=== PATIENT | female | born 1995 | race Two or more races ===

== ENCOUNTER 2016-03-11 19:31 | Inpatient (IN) | payer MEDICAID ==
[2016-03-11 19:52] VITALS: BMI 26.0
[2016-03-11] MEDS ORDERED: LR 500 ML IV PRN (19:57)
[2016-03-11] MEDS ORDERED: LR 1,000 ML IV SCH (20:00)
[2016-03-11] MEDS ORDERED: LIDOCAINE 1% 30 ML VIAL (PRESERVATIVE FREE) ONE (20:09)
[2016-03-11] MEDS ORDERED: OXYTOCIN 1,000 ML IV ONE ×2 (20:09→21:16)
[2016-03-11 20:16] LABS: MPV 12.2 fL (7.4-10.4)
--- NOTE | 2016-03-11 20:49 | HISTPHYS ---
- HISTORY OF PRESENT ILLNESS Age: 20 Estimated Due Date: 03/15/16 Gestational Age: 39 : 2 Para: 1 Patient Presents to:: Labor & Delivery Presents for:: Contractions, Leaking Fluid Current : No Complications, GBS - - REVIEW OF SYSTEMS ROS Negative Except As Marked: Yes ROS Negative except as marked Reports/Denies: Reports: Contractions, Movement, Leaking Fluid Pain: Reports: Abdominal - ALLERGIES Allergies Allergy/AdvReac Type Severity Reaction Status Date / Time No Known Allergies Allergy Verified 03/11/16 19:46 - CURRENT MEDICATIONS Home Medication List No Home Medications 03/11/16 [History] - PAST MEDICAL HISTORY Reports: No Significant History - PAST SURGICAL HISTORY splenectomy - SOCIAL HISTORY Smoking Status: Never smoker Social History: Denies: Amphetamine Use, Alcohol Use, Barbiturate Use, Benzodiazipine Use - GENITOURINARY HISTORY Gynecologic History: Reports: None HX : 2 Para: 1 Live Deliveries (# of pregnancies resulting in a live ): 1 1 Infant Sex: Female Weight: 6-8 Weeks Gestation: 38 - PHYSICAL EXAM Vital Signs:: Temperature: 97.7 F (03/11/16 20:26) HR: 85 (03/11/16 20:26) RR: 20 (03/11/16 20:26) BP: 152/76 (03/11/16 20:26) Pulse Ox: () GENERAL: Alert, Oriented, Distress (with contractions) ABDOMEN: Gravid, Non-Tender GENITOURINARY: Normal Dilation (cm): 10 Effacement (%): 100 Station: +1 Heart Rate: 150 Contractions: Regular Membranes: SROM - ASSESSMENT (ACTIVE PROBLEMS) (1) Active labor at term Acute [id number] - - PLAN Admit, IV Hydration, Labs
--- NOTE | 2016-03-11 20:50 | OBDELNOTE ---
Delivery Note - Problem/Diagnosis (1) Active labor at term Status: Acute (2) Single live Status: Acute (3) Vaginal delivery Status: Acute - Admitting Diagnosis Reason for Visit: Contractions, Leaking Fluid Admission Date: 03/11/16 Admission time: 19:49 Gestational Age: 39 - Procedures Procedure(s): Ultrasound, Non-Stress Test Labor Anesthesia/Analgesia: None Date: 03/11/16 Time: 20:25 Spontaneous Vaginal Delivery Presentation: Vertex Episiotomy: None Laceration: Vaginal Repair Agent: 3-0 Vicryl EBL: 300 Fluid: Clear Placenta: Spontaneous Description: Normal Cord: 3 Vessels. Denies: Nuchal Cord, True Knot - Data Order: [place] Infant Sex: Female Weight: 3.109 kg (1min): 9 (5min): 9 Feeding Plans for Infant: Breast, Bottle Plans Circumcision: No [place] to:: LDRP/Mother's Room - /Operative Complications /Op Complications: None Discharge Planning - REASON FOR ADMISSION Patient Presents to:: Labor & Delivery Reason for Visit: Contractions, Leaking Fluid - DISCHARGE INSTRUCTIONS
--- NOTE | 2016-03-11 20:51 | PCM.DCS92 ---
- Primary/Secondary Discharge Diagnoses (1) Active labor at term Acute [id number] - (2) Single live Acute Z37.0 - SINGLE LIVE (3) Vaginal delivery Acute O80 - ENCOUNTER FOR FULL-TERM UNCOMPLICATED DELIVERY - HOSPITAL COURSE /Op Complications: None - DISCHARGE INSTRUCTIONS Discharge Disposition: Home Discharge Condition: Good Cognitive Discharge Status: Unimpaired Fuctional Discharge Status: Independent Patient Leaving with Prescriptions?: Yes Home Medications/ New Prescriptions: New Hydrocodone Bit/Acetaminophen [Terrell 5-325 Tablet] 1 - 2 tab PO Q4H PRN #30 tab PRN Reason: Pain Ibuprofen Tablet [Motrin] 800 mg PO TID #30 tab - Diet Diet at Discharge: Regular - Activity Activity: No Heavy Lifting, Pelvic Rest, No Driving Do not lift more than_pounds: 15 No Driving for: 2 weeks - Instructions Call Physician for: Sudden/Sever Chest Pain, Soaking Pad in 1 hr, Temperature Above 100.4 - Incision Incision, Lacerations, or Tears: Yes - DC Summary Notes Discharge Medications: *See "Discharge Medication List" for a complete list of Home Medications and Discharge Medications.* Obstetric Hospital Course - Admitting Diagnosis Reason for Visit: Contractions, Leaking Fluid Admission Date: 03/11/16 Admission time: 19:49 Gestational Age: 39 - Procedures Procedure(s): Ultrasound, Non-Stress Test Labor Anesthesia/Analgesia: None Date: 03/11/16 Time: 20:25 Spontaneous Vaginal Delivery Presentation: Vertex Episiotomy: None Laceration: Vaginal Repair Agent: 3-0 Vicryl EBL: 300 Fluid: Clear Placenta: Spontaneous Description: Normal Cord: 3 Vessels. Denies: Nuchal Cord, True Knot - Infant Data Order: [place] Infant Sex: Female Weight: 3.109 kg (1min): 9 (5min): 9 Feeding Plans for : Breast, Bottle Plans Circumcision: No to:: LDRP/Mother's Room - /Operative Complications /Op Complications: None
[2016-03-11] MEDS ORDERED: Vaccine Screening Complete SCH ×2 (21:00)
[2016-03-11] MEDS ORDERED: Pharmacy Order Set Alert SCH (21:16)
[2016-03-11] MEDS ORDERED: LANOLIN OINTMENT 0.25 OZ TUBE TOP PRN (21:16)
[2016-03-11] MEDS ORDERED: ACETAMINOPHEN 325 MG/TAB TABLET PO PRN (21:16)
[2016-03-11] MEDS ORDERED: OXYCODONE HCL 5 MG TABLET PO PRN ×2 (21:16)
[2016-03-11 21:33] LABS: SEG NEUTROPHIL 40 % (45-76)
[2016-03-12] MEDS: IBUPROFEN 800 MG TAB PO SCH ×4 (00:02→17:58)
[2016-03-12] MEDS ORDERED: LR 1,000 ML IV SCH (03:46)
[2016-03-12] MEDS ORDERED: RHo(D) IMMUNE GLOBULIN (HUMAN) 300 MCG SYRINGE IM ONE (06:00)
[2016-03-12] MEDS ORDERED: TETANUS-DIPTHERIA-ACEL PERTUSS 0.5 ML SYR IM ONE (08:00)
--- NOTE | 2016-03-12 12:24 | OBGYNPROG ---
- Subjective Post Day: 1 Reports: Ambulating, Out of Bed, Tolerating Regular Diet, Voiding Freely, Moderate Lochia. Denies: Complaints, Dizziness, Fatigue, Headache, Blurred Vision, Nausea, Vomitting, Jitteriness, Palpitations, Chest Pain, Shortness of Breath Pain: Reports: Well Managed H&H Results 03/12/16 03/11/16 05:40 20:10 Hgb 6.9 L* D 8.9 L Hct 22.0 L 28.9 L Last Vital Signs Temp 98.0 F 03/12/16 10:24 Pulse 89 03/12/16 10:24 Resp 16 03/12/16 10:24 BP 121/63 03/12/16 10:24 Pulse Ox - Objective Vital Signs: Last Vital Signs Temp 98.0 F 03/12/16 10:24 Pulse 89 03/12/16 10:24 Resp 16 03/12/16 10:24 BP 121/63 03/12/16 10:24 Pulse Ox H&H Results 03/12/16 03/11/16 05:40 20:10 Hgb 6.9 L* D 8.9 L Hct 22.0 L 28.9 L General: Alert, Oriented, No Acute Distress Cardiovascular/Chest: Normal Respiratory: Normal - CTA ABDOMEN: Non-Tender, Soft Fundus: Firm. Denies: Tender EXTERMITIES: Moves All Extremeties. Denies: Edema HOUSTON'S SIGN: Denies: Bilateral OBGYN Progress Note - ASSESSMENT (1) Active labor at term Status: Acute Code(s): [id number] - (2) Single live Status: Acute Code(s): Z37.0 - SINGLE LIVE (3) Vaginal delivery Status: Acute Code(s): O80 - ENCOUNTER FOR FULL-TERM UNCOMPLICATED DELIVERY (4) care following vaginal delivery Status: Acute Code(s): Z39.2 - ENCOUNTER FOR ROUTINE FOLLOW-UP (5) Anemia Status: Acute Code(s): D64.9 - ANEMIA, UNSPECIFIED Qualifiers: Anemia type: A Iron deficiency anemia type: I Vitamin B12 deficiency anemia type: V Folate deficiency anemia type: F Bone marrow failure anemia type: B Hemolytic anemia type: H Other causes of anemia: O - PLAN Routine Care, Ambulate, Repeat Labs (at noon today. pt asymptomatic from anemia, will continue to watch closely. declines blood transfusion at this time. will start iron BID.)
[2016-03-12] MEDS: DOCUSATE-SENNA CONCENTRATE TAB PO SCH ×2 (12:50→12:51)
[2016-03-12] MEDS: FERROUS SULFATE 324 MG TAB PO SCH (17:58)
[2016-03-13] MEDS: DOCUSATE-SENNA CONCENTRATE TAB PO SCH ×2 (00:17→11:52)
[2016-03-13] MEDS: IBUPROFEN 800 MG TAB PO SCH ×3 (00:17→11:52)
[2016-03-13 06:19] VITALS: BP 118/67; PULSE 91; TEMP 98.2
--- NOTE | 2016-03-13 09:41 | OBGYNPROG ---
- Subjective Post Day: 2 Reports: Ambulating, Out of Bed, Tolerating Regular Diet, Voiding Freely, Moderate Lochia. Denies: Complaints, Dizziness, Headache, Blurred Vision, Nausea, Vomitting, Jitteriness, Palpitations, Chest Pain, Shortness of Breath Pain: Reports: Well Managed H&H Results 03/12/16 03/12/16 03/11/16 11:45 05:40 20:10 Hgb 7.0 L 6.9 L* D 8.9 L Hct 22.9 L 22.0 L 28.9 L Last Vital Signs Temp 98.2 F 03/13/16 06:19 Pulse 91 03/13/16 06:19 Resp 16 03/13/16 06:19 BP 118/67 03/13/16 06:19 Pulse Ox - Objective General: Alert, Oriented, No Acute Distress Cardiovascular/Chest: Normal Respiratory: Normal - CTA ABDOMEN: Non-Tender, Soft Fundus: Firm. Denies: Tender EXTERMITIES: Moves All Extremeties. Denies: Edema HOUSTON'S SIGN: Denies: Bilateral OBGYN Progress Note - ASSESSMENT (1) Active labor at term Status: Acute Code(s): [id number] - (2) Single live Status: Acute Code(s): Z37.0 - SINGLE LIVE (3) Vaginal delivery Status: Acute Code(s): O80 - ENCOUNTER FOR FULL-TERM UNCOMPLICATED DELIVERY (4) care following vaginal delivery Status: Acute Code(s): Z39.2 - ENCOUNTER FOR ROUTINE FOLLOW-UP (5) Anemia Status: Acute Code(s): D64.9 - ANEMIA, UNSPECIFIED Qualifiers: Anemia type: A Iron deficiency anemia type: I Vitamin B12 deficiency anemia type: V Folate deficiency anemia type: F Bone marrow failure anemia type: B Hemolytic anemia type: H Other causes of anemia: O - PLAN Routine Care, Discharge (instructions given)
[2016-03-13] MEDS ORDERED: TETANUS-DIPTHERIA-ACEL PERTUSS 0.5 ML SYR IM ONE (10:11)
[2016-03-13] MEDS: FERROUS SULFATE 324 MG TAB PO SCH (11:51)
== END 2016-03-13 12:34 | disposition home or self-care (01) | DRG 775 ==
LOC: LD 19:31 → MASU 19:55
PROVIDERS: ADMIT Obstetrics & Gynecology; ATTEND Obstetrics & Gynecology
PROC: 10E0XZZ Delivery of Products of Conception, External Approach (ICD-10-PCS; principal; 2016-03-11)
PROC: 0UQGXZZ Repair Vagina, External Approach (ICD-10-PCS; 2016-03-11)
PROC: 3E0234Z Introduction of Serum, Toxoid and Vaccine into Muscle, Percutaneous Approach (ICD-10-PCS; 2016-03-12)
DX: O71.4 Obstetric high vaginal laceration alone (principal); D64.9 Anemia, unspecified; Z37.0 Single live birth; Z3A.39 39 weeks gestation of pregnancy; O90.81 Anemia of the puerperium; Z23 Encounter for immunization
CPT/HCPCS: 59410; 81002; 83986; 85007; 85014; 85018; 85027; 85461; 86592; 86850; 86900; 86901; 90471; 90715; 96372; 96374; J2001; J2590; J2790; J3490